=== PATIENT | female | born 1980 | race Caucasian/White ===

== ENCOUNTER 2016-11-24 12:52 | Emergency (ER) | payer OTHER ==
[~2016-11-24] VITALS: Ht 154.9 cm; Wt 95.6 kg
[~2016-11-24 12:52] MED LIST: DICY10 PO; PROM25TA5 PO; RANI150T PO
[2016-11-24 12:54] VITALS: BP 124/87; PULSE 77; RESP 16; TEMP 98.8; O2SAT 100
[2016-11-24] MEDS ORDERED: ULTR50TA5 PO (13:16)
[2016-11-24] MEDS ORDERED: CYCL1TAB29 PO (13:16)
--- NOTE | 2016-11-24 13:17 | PD ---
HPI . Lump in her left calf Chief Complaint: Edema Time Seen by Provider: 13:05 Travel History International Travel<30 days: No Contact w/Intl Traveler<30days: No Traveled to known affect area: No History of Present Illness HPI Patient presents with a sore place in her left calf. She noticed it today. She denies any known injury. It only hurts with certain types of movement. She has no pain at rest. She looked at it and noticed that there was a lump associated with it. She subsequently presented to us for evaluation. [facility] Past Medical History Cardiovascular Problems: No Diminished Hearing: No Endocrine: No Genitourinary: No Musculoskeletal: No Neurologic: Yes Reproductive: Yes (ablation) Respiratory: No ?: Not Menopausal: No : 4 Para: 4 Tubal Ligation: Yes Past Surgical History Section: Yes Social History Alcohol Use: No Tobacco Use: No Substance Use: No Allergies-Medications (Allergen,Severity, Reaction): Coded Allergies: Keflex (Verified Allergy, Severe, VOMITING, 11/24/16) Morphine (Verified Allergy, Severe, RASH, 11/24/16) Sulfa (Verified Allergy, Severe, VOMITTING, 11/24/16) Reported Meds & Prescriptions Reported Meds & Active Scripts Active Bentyl (Dicyclomine HCl) 10 Mg Cap 10 Mg PO QID Ranitidine 150 mg (Ranitidine HCl) 150 Mg Tab 1 Tab PO BID Phenergan 25 mg (Promethazine HCl) 25 Mg Tab 25 Mg PO Q8HR Review of Systems Except as stated in HPI: all other systems reviewed are Neg General / Constitutional: No: Fever, Chills Respiratory: No: Shortness of Breath Musculoskeletal: Positive: Myalgias Physical Exam Narrative GENERAL: This is a healthy-appearing 36-year-old in no acute distress SKIN: Warm and dry. There is no redness or warmth of the skin. HEAD: Atraumatic. Normocephalic. EYES: Pupils equal and round. ENT: No nasal bleeding or discharge. NECK: Full range of motion without any apparent pain. CARDIOVASCULAR: Regular rate and rhythm. RESPIRATORY: No accessory muscle use. MUSCULOSKELETAL: No obvious deformities. No edema. She has a visible lump in her left lower leg distal to the gastrocnemius muscle. It can actually only the scene and felt when she dorsiflexes her foot. It is mildly tender. NEUROLOGICAL: Awake and alert. No obvious cranial nerve deficits. Motor grossly within normal limits. Normal speech. PSYCHIATRIC: Appropriate mood and affect; insight and judgment normal. Data Data Last Documented VS Vital Signs Date Time Temp Pulse Resp B/P Pulse Ox O2 Delivery O2 Flow Rate FiO2 11/24/16 12:54 98.8 77 16 124/87 100 MDM Medical Decision Making Medical Screen Exam Complete: Yes Emergency Medical Condition: Yes Differential Diagnosis Differential diagnosis includes but is not limited to DVT, lipoma, cyst, muscle strain Narrative Course Patient presents with some mild soreness and a lump in her left calf. It is pretty clearly muscular as it can only be seen when she dorsiflexes her foot. Diagnosis Primary Impression: Pain of left calf Patient Instructions: General Instructions, Muscle Spasm (ED) Additional Instructions: Warm compresses to the area. Follow-up if you develop any difficulty breathing or if your symptoms worsen. Scripts Cyclobenzaprine (Flexeril)10 Mg Tab10 Mg PO TID #30 TAB Ref 0 Prov:Bhumi Thomas MD 11/24/16 Tramadol (Ultram)50 Mg Tab50 Mg PO Q4H PRN (PAIN) #12 TAB Ref 0 Prov:Bhumi Thoams MD 11/24/16 Disposition: 01 DISCHARGE HOME Condition: Stable Bhumi Thomas MD Nov 24, 2016 13:16
[2016-12-23] MEDS ORDERED: ALPR.25 PO (09:47)
[2017-02-19] MEDS ORDERED: ERGO1CAP30 PO (10:26)
[2017-04-08] MEDS ORDERED: CELE10TA PO (10:28)
== END 2016-11-24 13:42 | disposition home or self-care (01) ==
LOC: PHED 12:52
DX: M79.662 Pain in left lower leg (principal)
CPT/HCPCS: 99282

== ENCOUNTER → 2017-02-17 | Outpatient (CLI) | payer OTHER ==
[~2017-02-17] MED LIST changes: +ALPR.25 PO; +CELE10TA PO; -DICY10 PO; +ERGO1CAP30 PO; -PROM25TA5 PO; -RANI150T PO
[2017-02-17 13:25] LABS: AUTOMATED NEUTROPHIL # 2.8 TH/MM3 (1.8-7.7); EOSINOPHIL # 0.1 TH/MM3 (0-0.4); HEMATOCRIT 41.3 % (35.0-46.0); HEMO FLAGS DIFF FINAL; LYMPH % 34.4 % (9.0-44.0); LYMPHOCYTE # 1.7 TH/MM3 (1.0-4.8); MEAN CELL VOLUME 91.2 FL (80.0-100.0); MEAN CORPUSCULAR HEMOGLOBIN 30.4 PG (27.0-34.0); MEAN CORPUSCULAR HGB CONC 33.3 % (32.0-36.0); MONO % 8.2 % (0.0-8.0); NEUT % 54.4 % (16.0-70.0); PLATELET COUNT 191 TH/MM3 (150-450); RED BLOOD COUNT 4.53 MIL/MM3 (4.00-5.30); RED CELL DISTRIBUTION WIDTH 13.1 % (11.6-17.2); WHITE BLOOD COUNT 5.1 TH/MM3 (4.0-11.0)
[2017-02-17 13:59] LABS: ALKALINE PHOSPHATASE 72 U/L (45-117); ALT (GPT) 29 U/L (10-53); ANION GAP 6 MEQ/L (5-15); AST (GOT) 20 U/L (15-37); BICARBONATE 29.2 MEQ/L (21.0-32.0); BLOOD UREA NITROGEN 15 MG/DL (7-18); CHLORIDE 107 MEQ/L (98-107); FREE T4 0.91 NG/DL (0.76-1.46); GLOMERULAR FILTRATION RATE 80 ML/MIN (>89); GLUCOSE,FASTING 89 MG/DL (74-99); HDL CHOLESTEROL 44.6 MG/DL (40.0-60.0); LDL CHOLESTEROL 107 MG/DL (0-99); POTASSIUM 4.4 MEQ/L (3.5-5.1); SODIUM (NA) 142 MEQ/L (136-145); TOTAL BILIRUBIN ADULT 0.4 MG/DL (0.2-1.0)
== END ==
LOC: PLAB 08:08
PROVIDERS: ATTEND Family Medicine
DX: E55.9 Vitamin D deficiency, unspecified (principal); F41.9 Anxiety disorder, unspecified
CPT/HCPCS: 80053; 80061; 82306; 84439; 84443; 85025

== ENCOUNTER 2017-06-11 12:03 | Emergency (ER) | payer OTHER ==
[~2017-06-11] VITALS: Ht 154.9 cm; Wt 94.2 kg
[2017-06-11 12:31] VITALS: BP 138/83; PULSE 75; RESP 16; TEMP 98.7; O2SAT 100
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
== END 2017-06-11 13:57 | disposition home or self-care (01) ==
LOC: PHED 12:03
DX: S61.234A Puncture wound without foreign body of right ring finger without damage to nail, initial encounter (principal); Z77.21 Contact with and (suspected) exposure to potentially hazardous body fluids; W46.1XXA Contact with contaminated hypodermic needle, initial encounter; Y93.F9 Activity, other caregiving; Y92.531 Health care provider office as the place of occurrence of the external cause; Y99.0 Civilian activity done for income or pay
CPT/HCPCS: 99281

== ENCOUNTER → 2017-08-24 | Outpatient (CLI) | payer OTHER ==
[2017-08-24 10:42] LABS: AUTOMATED NEUTROPHIL # 2.7 TH/MM3 (1.8-7.7); BASOPHIL % 0.8 % (0.0-2.0); EOSINOPHIL # 0.1 TH/MM3 (0-0.4); EOSINOPHIL % 1.6 % (0.0-4.0); HEMATOCRIT 40.8 % (35.0-46.0); HEMO FLAGS DIFF FINAL; LYMPH % 35.2 % (9.0-44.0); LYMPHOCYTE # 1.7 TH/MM3 (1.0-4.8); MEAN CELL VOLUME 91.5 FL (80.0-100.0); MEAN CORPUSCULAR HEMOGLOBIN 31.5 PG (27.0-34.0); MEAN CORPUSCULAR HGB CONC 34.4 % (32.0-36.0); MONO % 8.3 % (0.0-8.0); NEUT % 54.1 % (16.0-70.0); PLATELET COUNT 195 TH/MM3 (150-450); RED BLOOD COUNT 4.46 MIL/MM3 (4.00-5.30); RED CELL DISTRIBUTION WIDTH 12.9 % (11.6-17.2)
[2017-08-24 10:48] LABS: ANION GAP 4 MEQ/L (5-15); AST (GOT) 23 U/L (15-37); BICARBONATE 29.5 MEQ/L (21.0-32.0); BLOOD UREA NITROGEN 12 MG/DL (7-18); CHLORIDE 105 MEQ/L (98-107); GLOMERULAR FILTRATION RATE 86 ML/MIN (>89); POTASSIUM 4.1 MEQ/L (3.5-5.1); SODIUM (NA) 138 MEQ/L (136-145)
[2017-08-24 11:03] LABS: ALKALINE PHOSPHATASE 66 U/L (45-117); ALT (GPT) 26 U/L (10-53); GLUCOSE,FASTING 81 MG/DL (74-99); HDL CHOLESTEROL 45.3 MG/DL (40.0-60.0); LDL CHOLESTEROL 105 MG/DL (0-99); TOTAL BILIRUBIN ADULT 0.8 MG/DL (0.2-1.0)
== END ==
LOC: PLAB 08:10
PROVIDERS: ATTEND Family Medicine
DX: E55.9 Vitamin D deficiency, unspecified (principal); F41.9 Anxiety disorder, unspecified; R25.2 Cramp and spasm; M54.2 Cervicalgia; R07.89 Other chest pain
CPT/HCPCS: 36415; 80053; 80061; 82306; 84443; 85025

== ENCOUNTER 2017-09-29 18:44 | Emergency (ER) | payer OTHER ==
[~2017-09-29] VITALS: Ht 154.9 cm; Wt 92.0 kg
[2017-09-29 19:15] VITALS: BP 172/100; PULSE 104; RESP 18; TEMP 98.9; O2SAT 98
[2017-09-29] MEDS ORDERED: SODIUM CHLORIDE 0.9% FLUSH 10 ML FLUSH IVF PRN (19:15)
[2017-09-29] MEDS ORDERED: SODIUM CHLOR 0.9% 1000 ML INJ 1,000 ML IV ONE (19:15)
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
[2017-09-29 19:33] LABS: BLOOD, URINE NEG (NEG); GLUCOSE,URINE NEG (NEG); KETONE, URINE NEG (NEG); NITRITE,URINE NEG (NEG)
[2017-09-29 19:34] LABS: AUTOMATED NEUTROPHIL # 4.4 TH/MM3 (1.8-7.7); BASOPHIL # 0.1 TH/MM3 (0-0.2); BASOPHIL % 0.8 % (0.0-2.0); EOSINOPHIL # 0.1 TH/MM3 (0-0.4); HEMATOCRIT 42.9 % (35.0-46.0); HEMO FLAGS DIFF FINAL; LYMPH % 28.1 % (9.0-44.0); MEAN CELL VOLUME 89.6 FL (80.0-100.0); MEAN CORPUSCULAR HEMOGLOBIN 29.9 PG (27.0-34.0); MEAN CORPUSCULAR HGB CONC 33.4 % (32.0-36.0); MONO % 7.1 % (0.0-8.0); PLATELET COUNT 218 TH/MM3 (150-450); RED BLOOD COUNT 4.78 MIL/MM3 (4.00-5.30); RED CELL DISTRIBUTION WIDTH 12.2 % (11.6-17.2); WHITE BLOOD COUNT 7.1 TH/MM3 (4.0-11.0)
[2017-09-29 19:41] LABS: URINE COLOR STRAW (YELLW/STRAW)
[2017-09-29 19:42] LABS: CHLORIDE 103 MEQ/L (98-107); COMMENT (UR) CULT NOT INDICATED; CULTURE IF INDICATED CULT NOT INDICATED; POTASSIUM 3.8 MEQ/L (3.5-5.1); RBC, URINE 0-2 /hpf (0-3); SODIUM (NA) 139 MEQ/L (136-145); SQUAMOUS EPITHELIAL CELL URINE 0-5 /hpf (0-5); WBC, URINE 0-2 /hpf (0-5)
[2017-09-29 19:44] LABS: MAGNESIUM 2.3 MG/DL (1.5-2.5)
[2017-09-29 19:45] LABS: ANION GAP 9 MEQ/L (5-15); BICARBONATE 27.1 MEQ/L (21.0-32.0); BLOOD UREA NITROGEN 15 MG/DL (7-18)
[2017-09-29] MEDS ORDERED: VITA1000 PO (19:45)
[2017-09-29] MEDS ORDERED: LEXA10TA PO (19:45)
[2017-09-29] MEDS ORDERED: LORA-392 PO (19:45)
[2017-09-29 19:48] LABS: GLOMERULAR FILTRATION RATE 63 ML/MIN (>89)
[2017-09-29 19:50] LABS: APTT (PATIENT) 29.1 SEC (24.3-30.1); INTERNATIONAL NORMALIZED RATIO 0.9 RATIO; PROTHROMBIN TIME - PATIENT 10.1 SEC (9.8-11.6)
[2017-09-29 19:51] LABS: CREATINE KINASE 119 U/L (26-192)
[2017-09-29 19:54] VITALS: BP 112/69; PULSE 100; RESP 16; O2SAT 100; O2SAT 99
[2017-09-29 20:03] LABS: CKMB LESS THAN 0.5 NG/ML (0.5-3.6)
[2017-09-29 20:37] VITALS: BP 104/53
--- NOTE | 2017-09-29 20:40 | RADRPT ---
EXAM DATE/TIME: 09/29/2017 19:28 [facility] COMPARISON: No previous studies available for comparison. INDICATIONS : Irregular heart rate, numbness on left side of body for 2 hours MEDICAL HISTORY : Asthma SURGICAL HISTORY : None. ENCOUNTER: Initial ACUITY: 1 day PAIN SCORE: 0/10 LOCATION: Bilateral chest FINDINGS: A single view of the chest demonstrates the lungs to be symmetrically aerated without evidence of mas s, infiltrate or effusion. The cardiomediastinal contours are unremarkable. Osseous structures are intact. CONCLUSION: No acute disease. Terrell John MD on September 29, 2017 at 20:39 Board Certified Radiologist. This report was verified electronically.
--- NOTE | 2017-09-30 18:18 | EKG ---
Date Performed: 09/29/2017 Time Performed: 19:03:20 PTAGE: 36 years EKG: Sinus rhythm MODERATE INTRAVENTRICULAR CONDUCTION DELAY BORDERLINE ECG INTERPRETATION BASED ON A DEFAULT AGE OF 4 0 YEARS PREVIOUS TRACING 05/25/08 Since the prior tracing, the supraventricular tachycardia has r esolved as have the diffuse ST-T wave changes. DOCTOR: Pearl Leon Interpretating Date/Time 09/30/2017 18:17:34
== END 2017-09-29 20:41 | disposition home or self-care (01) ==
LOC: PHED 18:44
DX: R00.2 Palpitations (principal); R20.2 Paresthesia of skin; Z79.899 Other long term (current) drug therapy
CPT/HCPCS: 71010; 80048; 81001; 82550; 82552; 83735; 84443; 84484; 84703; 85025; 85610; 85730; 93005; 96360; 99285; J7030

== ENCOUNTER → 2017-10-27 | Outpatient (CLI) | payer OTHER ==
[~2017-10-27] MED LIST changes: -ALPR.25 PO; -CELE10TA PO; -ERGO1CAP30 PO; +LEXA10TA PO; +LORA-392 PO; +VITA1000 PO
[2017-10-27 14:16] LABS: FREE T4 0.86 NG/DL (0.76-1.46)
== END ==
LOC: PLAB 08:16
PROVIDERS: ATTEND Psychiatry & Neurology Neurology
DX: G45.0 Vertebro-basilar artery syndrome (principal); R76.0 Raised antibody titer; E71.120 Methylmalonic acidemia; M31.6 Other giant cell arteritis; R79.82 Elevated C-reactive protein (CRP); E53.8 Deficiency of other specified B group vitamins; R94.6 Abnormal results of thyroid function studies
CPT/HCPCS: 36415; 82607; 83921; 84439; 84443; 85652; 86038; 86140

== ENCOUNTER 2017-11-15 19:31 | Emergency (ER) | payer OTHER ==
[~2017-11-15] VITALS: Ht 154.9 cm; Wt 88.0 kg
[2017-11-15 19:32] VITALS: BP 130/72; PULSE 104; RESP 16; TEMP 99.4; O2SAT 99
[2017-11-15] MEDS ORDERED: SODIUM CHLORIDE 0.9% FLUSH 10 ML FLUSH IVF PRN (19:45)
[2017-11-15] MEDS ORDERED: SODIUM CHLOR 0.9% 1000 ML INJ 1,000 ML IV ONE (19:45)
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
[2017-11-15 20:42] VITALS: RESP 18; O2SAT 99
[2017-11-15 21:01] LABS: AUTOMATED NEUTROPHIL # 3.3 TH/MM3 (1.8-7.7); BASOPHIL % 0.8 % (0.0-2.0); EOSINOPHIL % 0.5 % (0.0-4.0); HEMATOCRIT 37.7 % (35.0-46.0); HEMOGLOBIN 13.1 GM/DL (11.6-15.3); LYMPH % 18.6 % (9.0-44.0); MEAN CELL VOLUME 90.5 FL (80.0-100.0); MEAN CORPUSCULAR HEMOGLOBIN 31.5 PG (27.0-34.0); MEAN CORPUSCULAR HGB CONC 34.9 % (32.0-36.0); MEAN PLATELET VOLUME 9.2 FL (7.0-11.0); MONO % 15.3 % (0.0-8.0); MONOCYTE # 0.8 TH/MM3 (0-0.9); NEUT % 64.8 % (16.0-70.0); PLATELET COUNT 163 TH/MM3 (150-450); RED BLOOD COUNT 4.16 MIL/MM3 (4.00-5.30); RED CELL DISTRIBUTION WIDTH 12.7 % (11.6-17.2); WHITE BLOOD COUNT 5.2 TH/MM3 (4.0-11.0)
--- NOTE | 2017-11-15 21:04 | RADRPT ---
EXAM DATE/TIME: 11/15/2017 20:44 [facility] COMPARISON: CHEST SINGLE AP, September 29, 2017, 19:28. INDICATIONS : Heart palpitations for 1 day. Short of breath. MEDICAL HISTORY : Asthma. SURGICAL HISTORY : None. ENCOUNTER: Initial ACUITY: 1 day PAIN SCORE: 0/10 LOCATION: Bilateral chest. FINDINGS: The lungs are clear without infiltrate, nodule, or mass. There is no appreciable pleural effusion fo r technique. Heart and mediastinum are unremarkable. CONCLUSION: No acute cardiopulmonary disease. Jeff Zhao MD on November 15, 2017 at 21:02 Board Certified Radiologist. This report was verified electronically.
[2017-11-15 21:14] LABS: PROTHROMBIN TIME - PATIENT 10.3 SEC (9.8-11.6)
[2017-11-15 21:17] LABS: D-DIMER 0.21 MG/L FEU (0.00-0.50)
[2017-11-15 21:25] LABS: ALBUMIN 3.4 GM/DL (3.4-5.0); AST (GOT) 22 U/L (15-37); BICARBONATE 26.9 MEQ/L (21.0-32.0); BLOOD UREA NITROGEN 11 MG/DL (7-18); CALCIUM 8.6 MG/DL (8.5-10.1); CHLORIDE 106 MEQ/L (98-107); CREATININE 0.78 MG/DL (0.50-1.00); GLOMERULAR FILTRATION RATE 83 ML/MIN (>89); GLUCOSE,RANDOM 76 MG/DL (74-106); MAGNESIUM 2.1 MG/DL (1.5-2.5); SODIUM (NA) 139 MEQ/L (136-145)
[2017-11-15 21:26] LABS: ALT (GPT) 29 U/L (10-53)
[2017-11-15 21:36] LABS: ALKALINE PHOSPHATASE 66 U/L (45-117); TOTAL BILIRUBIN ADULT 0.4 MG/DL (0.2-1.0); TOTAL PROTEIN 7.3 GM/DL (6.4-8.2)
[2017-11-16] MEDS ORDERED: BENZ100 PO (16:00)
[2017-11-16] MEDS ORDERED: ALBUAER3 INH (16:00)
[2017-11-16] MEDS ORDERED: AZIT250T3 PO (16:00)
[2017-11-16] MEDS ORDERED: PRED20 PO (16:00)
--- NOTE | 2017-11-16 18:03 | EKG ---
Date Performed: 11/15/2017 Time Performed: 20:02:10 PTAGE: 37 years EKG: Sinus rhythm NORMAL ECG PREVIOUS TRACING : 09/29/2017 19.03 Compared to prior tracing no significant change DOCTOR: Colleen Palacios Interpretating Date/Time 11/16/2017 18:03:17
== END 2017-11-15 23:07 | disposition home or self-care (01) ==
LOC: NEPD 19:31
DX: R00.2 Palpitations (principal); F41.9 Anxiety disorder, unspecified; F32.9 Major depressive disorder, single episode, unspecified
CPT/HCPCS: 71045; 80053; 83735; 84443; 84703; 85025; 85379; 85610; 85730; 87804; 93005; 99285; J7030

== ENCOUNTER 2017-11-16 14:12 | Emergency (ER) | payer OTHER ==
[~2017-11-16] VITALS: Ht 154.9 cm; Wt 91.0 kg
[2017-11-16 14:20] VITALS: BP 116/69; PULSE 114; RESP 16; TEMP 99.9; O2SAT 97
[2017-11-16] MEDS ORDERED: ACETAMINOPHEN 500 MG CPLT PO ONE (15:00)
[2017-11-16 15:43] VITALS: BP 123/74; PULSE 100; RESP 16; TEMP 100.6; O2SAT 98
[2017-11-16] MEDS ORDERED: BENZ100 PO (16:00)
[2017-11-16] MEDS ORDERED: ALBUAER3 INH (16:00)
[2017-11-16] MEDS ORDERED: PRED20 PO (16:00)
[2017-11-16] MEDS ORDERED: AZIT250T3 PO (16:00)
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
== END 2017-11-16 16:10 | disposition home or self-care (01) ==
LOC: PHEFT 14:12
DX: J40 Bronchitis, not specified as acute or chronic (principal)
CPT/HCPCS: 87081; 87880; 99284